=== PATIENT | female | born 1975 | race Caucasian/White ===

== ENCOUNTER 2021-08-15 10:16 | Emergency (ER) | payer BC, OTHER ==
[2021-08-15] MEDS ORDERED: BABY ASPIRIN 81 MG CHEW PO ONE (10:49)
[2021-08-15 10:54] LABS: Absolute Neutrophil Ct (ANC) 3.91 (1.4-6.9); Basophil (Absolute #) 0.07 (0-0.4); Eosinophil % 2.6 % (0.00-5.0); Eosinophil (Absolute #) 0.23 (0-0.5); Hematocrit 36.1 % (35-47); Lymphocyte (Absolute #) 4.25 (1.0-4.6); Lymphocytes % 47.4 % (24.0-44.0); Mean Cell Volume 88.7 fl (78-100); Mean Corpuscular Hemoglobin 29.5 pg (26-32); Mean Corpuscular Hgb Concent. 33.2 g/dl (32-36); Mean Platelet Volume 8.8 fl (7.5-11.0); Monocytes % 5.6 % (0.0-12.0); Neutrophil % 43.6 % (36.0-66.0); Platelet Count 344 K/mm3 (150-450); Red Blood Count 4.07 M/mm3 (4.1-5.4)
[2021-08-15] MEDS ORDERED: BABY ASPIRIN 81 MG CHEW ONE (11:01)
--- NOTE | 2021-08-15 11:12 | XRAY ---
Indication: Chest pain. Comparison: July 20, 2006. Portable chest demonstrates normal heart and lungs with new tiny right lung calcified granulomas. Bony thorax intact. No acute findings.
[2021-08-15 11:13] LABS: ALBUMIN 4.6 g/dL (3.5-5.0); ALKALINE PHOSPHATASE 37 U/L (38-126); ANION GAP 17.3 MEQ/L (5-15); BLOOD UREA NITROGEN 5 mg/dL (7-17); CHLORIDE 100 mmol/L (98-107); Calcium 9.6 mg/dL (8.4-10.2); Carbon Dioxide 24 mmol/L (22-30); Creatinine 1 0.58 mg/dL (0.52-1.04); EST GLOMERULAR FILTRATION RATE > 60.0 ML/MIN; Glucose 103 mg/dL (74-106); NT PRO BNP 40.6 pg/mL (0-450); Potassium 4.2 mmol/L (3.5-5.1); SGOT/AST 21 U/L (14-36); SGPT/ALT 18 U/L (0-35); SODIUM 137 mmol/L (137-145)
--- NOTE | 2021-08-15 14:50 | ERPHSYRPT ---
- History of Present Illness Time Seen by Provider: 08/15/21 10:22 Historian: patient Exam Limitations: no limitations Patient Subjective Stated Complaint: Pt states "I was working and had a sudden grabby pain in my left chest and that got my anxiety up and I could not get the pain to go away." Triage Nursing Assessment: Pt presented alert and oriented X 3, skin pwd. Pt presented smiling and ambulating with an uprigth steady gait, able to speak in clear full sentences. Pt in no apparent respiratory distress. Physician History: 45 years old female with history of anxiety presented to the ER with chief complaint of left-sided chest pain sudden onset while she was sitting at the desk, mild to moderate dull pressure nonradiating, lasting for few minutes and started to improve on presentation in the ER and currently chest pain-free. 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 Patient thinks this is probably secondary to her worsening anxiety symptoms. Timing/Duration: hour(s) (1), constant, sudden, improved Activities at Onset: rest Quality: dullness, fullness Chest Pain Radiation: no radiation Severity of Pain-Max: moderate Severity of Pain-Current: none Modifying Factors: Improves With: nothing Associated Symptoms: denies symptoms Prior Chest Pain/Cardiac Workup: no prior cardiac workup Nitro Today/Relief: no nitro taken today Aspirin Treatment Today: no aspirin today Allergies/Adverse Reactions: Sulfa (Sulfonamide Antibiotics) Allergy (Severe, Verified 08/15/21 10:24) Hives sulfamethoxazole [From Bactrim] Allergy (Verified 03/23/12 17:26) trimethoprim [From Bactrim] Allergy (Verified 03/23/12 17:26) Home Medications: Calcium Carbonate/Vitamin D3 [Calcium + Vitamin D Tablet] 1 each PO DAILY 01/24/12 [History] Metformin HCl 500 mg [Glucophage 500 MG] 500 mg PO BID 01/24/12 [History] Multivitamin [Multi-Day Vitamins] 1 each PO DAILY 01/24/12 [History] Omeprazole 20 MG [Prilosec 20 mg] 20 mg PO DAILY 01/24/12 [History] Spironolact/Hydrochlorothiazid [Spironolactone-Hctz 25-25 Tab] 1 each PO DAILY 01/24/12 [History] Bupropion HCl 150 mg Sr [Wellbutrin SR 150 MG] 150 mg PO DAILY 08/15/21 [History] Icosapent Ethyl [Vascepa] 1 cap PO DAILY 08/15/21 [History] Metoprolol Tartrate 25 mg [Lopressor 25MG Tab] 25 mg PO DAILY 08/15/21 [History] Hx Tetanus, Diphtheria Vaccination/Date Given: Yes (2006) Hx Influenza Vaccination/Date Given: No Hx Pneumococcal Vaccination/Date Given: No Immunizations Up to Date: Yes Travel Risk - International Travel Have you traveled outside of the country in past 3 weeks: No - Coronavirus Screening Are you exhibiting any of the following symptoms?: No Close contact with a COVID-19 positive Pt in past 14-21 Days: No - Vaccine Status Have you recieved a Covid-19 vaccination: 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: [employer] - Vaccination Dates Date of 2cond Vaccination (if applicable): 11/2020 - Review of Systems Constitutional: No Symptoms Eyes: No Symptoms Ears, Nose, & Throat: No Symptoms Respiratory: No Symptoms Cardiac: Chest Pain Abdominal/Gastrointestinal: No Symptoms Genitourinary Symptoms: No Symptoms Musculoskeletal: No Symptoms Skin: No Symptoms Neurological: No Symptoms Psychological: No Symptoms Endocrine: No Symptoms Hematologic/Lymphatic: No Symptoms Immunological/Allergic: No Symptoms - Past Medical History Pertinent Past Medical History: Yes Cardiac History: High Cholesterol, Hypertension Endocrine Medical History: Diabetes Type II Psycho-Social History: Anxiety, Depression Female Reproductive Disorders: Other - Past Surgical History Past Surgical History: Yes Other Surgical History: OCULAR IMPLANT - Social History Smoking Status: Never smoker Exposure to second hand smoke: Yes Alcohol Use: Socially Drug Use: none Patient Lives Alone: No Significant Family History: no pertinent family hx - Female History Hx Last Menstrual Period: 08/05/2020 Hx Now: No - Nursing Vital Signs Nursing Vital Signs: Initial Vital Signs Temperature 97.6 F 08/15/21 10:16 Pulse Rate 83 08/15/21 10:16 Respiratory Rate 20 08/15/21 10:16 Blood Pressure 148/100 08/15/21 10:16 O2 Sat by Pulse Oximetry 100 08/15/21 10:16 Pain Scale Pain Intensity 0 - Physical Exam General Appearance: no apparent distress, alert Eye Exam: PERRL/EOMI, eyes nml inspection, other Ears, Nose, Throat Exam: normal ENT inspection, pharynx normal, moist mucous membranes Neck Exam: normal inspection, non-tender, supple, full range of motion Respiratory Exam: normal breath sounds, lungs clear Cardiovascular Exam: regular rate/rhythm, normal heart sounds Gastrointestinal/Abdomen Exam: soft, normal bowel sounds, No tenderness Back Exam: normal inspection, normal range of motion Extremity Exam: normal inspection, normal range of motion Neurologic Exam: alert, oriented x 3, cooperative Skin Exam: normal color SpO2 Interpretation: normal SpO2: 99 O2 Delivery: Room Air - Course EKG Interpreted by Me: RATE (79), Sinus Rhythm, NORMAL AXIS, NORMAL INTERVALS, Non-specific ST Changes, Other (T wave inversion in inferolateral leads) Ordered Tests: Active Orders 24 hr Category Date Time Status Powder And Primer Canning Leader STAT Care 08/15/21 10:50 Completed EKG-ER Only STAT Care 08/15/21 10:49 Completed IV Insertion STAT Care 08/15/21 10:49 Completed CHEST 1 VIEW (PORTABLE) Stat Exams 08/15/21 10:50 Completed CBC W DIFF Stat Lab 08/15/21 10:00 Completed CMP Stat Lab 08/15/21 10:00 Completed D-DIMER QUANTITATIVE Stat Lab 08/15/21 10:00 Completed NT PRO BNP Stat Lab 08/15/21 10:00 Completed TROPONIN Q3H Lab 08/15/21 10:00 Completed TROPONIN Q3H Lab 08/15/21 14:05 Completed Medication Summary Discontinued Medications Generic Name Dose Route Start Last Admin Trade Name Freq PRN Reason Stop Dose Admin Aspirin 324 mg 08/15/21 10:49 08/15/21 11:02 Aspirin 81 Mg Tab.Chew PO 08/15/21 10:50 324 mg STAT ONE Administration Aspirin Confirm 08/15/21 11:01 Aspirin 81 Mg Tab.Chew Administered 08/15/21 11:02 Dose 324 mg .ROUTE .STK-MED ONE Lab/Rad Data: Laboratory Result Diagrams 08/15/21 10:00 08/15/21 10:00 Laboratory Results 08/15/21 08/15/21 08/15/21 Range/Units 14:05 10:00 10:00 WBC (4.0-10.5) K/mm3 RBC (4.1-5.4) M/mm3 Hgb (12.0-16.0) gm/dl Hct (35-47) % MCV (78-100) fl MCH (26-32) pg MCHC (32-36) g/dl RDW (11.5-14.0) % Plt Count (150-450) K/mm3 MPV (7.5-11.0) fl Gran % (36.0-66.0) % Eos # (Auto) (0-0.5) Absolute Lymphs (auto) (1.0-4.6) Absolute Monos (auto) (0.0-1.3) Lymphocytes % (24.0-44.0) % Monocytes % (0.0-12.0) % Eosinophils % (0.00-5.0) % Basophils % (0.0-0.4) % Absolute Granulocytes (1.4-6.9) Basophils # (0-0.4) D-Dimer < 215 L (215-500) ng/mL Sodium (137-145) mmol/L Potassium (3.5-5.1) mmol/L Chloride (98-107) mmol/L Carbon Dioxide (22-30) mmol/L Anion Gap (5-15) MEQ/L BUN (7-17) mg/dL Creatinine (0.52-1.04) mg/dL Estimated GFR ML/MIN Glucose (74-106) mg/dL Calcium (8.4-10.2) mg/dL Total Bilirubin (0.2-1.3) mg/dL AST (14-36) U/L ALT (0-35) U/L Alkaline Phosphatase (38-126) U/L Troponin I < 0.012 < 0.012 (0.000-0.034) ng/mL NT-Pro-B Natriuret Pep (0-450) pg/mL Serum Total Protein (6.3-8.2) g/dL Albumin (3.5-5.0) g/dL 08/15/21 08/15/21 Range/Units 10:00 10:00 WBC 9.0 (4.0-10.5) K/mm3 RBC 4.07 L (4.1-5.4) M/mm3 Hgb 12.0 (12.0-16.0) gm/dl Hct 36.1 (35-47) % MCV 88.7 (78-100) fl MCH 29.5 (26-32) pg MCHC 33.2 (32-36) g/dl RDW 13.0 (11.5-14.0) % Plt Count 344 (150-450) K/mm3 MPV 8.8 (7.5-11.0) fl Gran % 43.6 (36.0-66.0) % Eos # (Auto) 0.23 (0-0.5) Absolute Lymphs (auto) 4.25 (1.0-4.6) Absolute Monos (auto) 0.50 (0.0-1.3) Lymphocytes % 47.4 H (24.0-44.0) % Monocytes % 5.6 (0.0-12.0) % Eosinophils % 2.6 (0.00-5.0) % Basophils % 0.8 (0.0-0.4) % Absolute Granulocytes 3.91 (1.4-6.9) Basophils # 0.07 (0-0.4) D-Dimer (215-500) ng/mL Sodium 137 (137-145) mmol/L Potassium 4.2 (3.5-5.1) mmol/L Chloride 100 (98-107) mmol/L Carbon Dioxide 24 (22-30) mmol/L Anion Gap 17.3 H (5-15) MEQ/L BUN 5 L (7-17) mg/dL Creatinine 0.58 (0.52-1.04) mg/dL Estimated GFR > 60.0 ML/MIN Glucose 103 (74-106) mg/dL Calcium 9.6 (8.4-10.2) mg/dL Total Bilirubin 0.50 (0.2-1.3) mg/dL AST 21 (14-36) U/L ALT 18 (0-35) U/L Alkaline Phosphatase 37 L (38-126) U/L Troponin I (0.000-0.034) ng/mL NT-Pro-B Natriuret Pep 40.6 (0-450) pg/mL Serum Total Protein 7.0 (6.3-8.2) g/dL Albumin 4.6 (3.5-5.0) g/dL - Progress Progress: improved Air Movement: good Progress Note: 08/15/21 14:47 45 years old is evaluated for chest pain. EKG showed normal sinus rhythm without any ST elevations. Negative troponins x2. Negative D-dimers. Chest x- ray negative for any acute cardiopulmonary findings. Low heart score. Do not think she needs to be admitted and her symptoms could be secondary to anxiety. Recommended outpatient follow-up with primary care and cardiology for reevaluation. Discussed signs symptoms of worsening needing return to ER which he seems understanding. Blood Culture(s) Obtained: No Antibiotics given: No Counseled pt/family regarding: lab results, diagnosis, need for follow-up, rad results - Departure Departure Disposition: Home Clinical Impression: Atypical chest pain, Anxiety Condition: Stable Critical Care Time: No Referrals: WILFRED TIJERINA NP [Primary Care Provider] - Follow up/PCP as directed (1-2 days for reevaluation) [place] KEMP [CONSULTING PHYSICIAN] - Follow up/PCP as directed (Call for appointment) Instructions: Angina (DC) Additional Instructions: Take Tylenol as needed for pain. Continue with your current anxiety medications. Follow-up with primary care and cardiology for reevaluation. Return to ER for worsening pain and if having palpitations/shortness of breath etc.
[2021-08-15 15:08] VITALS: BP 112/68; PULSE 100
[2021-08-15 21:45] VITALS: O2SAT 99
== END 2021-08-15 15:41 | disposition home or self-care (01) ==
LOC: ED 10:16
DX: R07.89 Other chest pain (principal); F41.9 Anxiety disorder, unspecified; E78.5 Hyperlipidemia, unspecified; I10 Essential (primary) hypertension; E11.9 Type 2 diabetes mellitus without complications; Z79.84 Long term (current) use of oral hypoglycemic drugs
CPT/HCPCS: 36000; 36415; 71045; 80053; 83880; 84484; 85025; 85379; 93005; 93041; 99284; A9270-GY

== ENCOUNTER 2023-12-16 15:08 | Emergency (ER) | payer OTHER ==
[2023-12-16] MEDS: BABY ASPIRIN 81 MG CHEW PO ONE (15:24)
[2023-12-16 15:33] VITALS: TEMP 96.9
--- NOTE | 2023-12-16 15:42 | ERPHSYRPT ---
- History of Present Illness Time Seen by Provider: 12/16/23 15:25 Historian: patient Exam Limitations: no limitations Patient Subjective Stated Complaint: Chest pain Triage Nursing Assessment: Patient ambulated back to ED and transferred self to bed. Patient A+O X3. Patient's skin pink, warm and dry. Patient complains of intermittent chest pain on and off since this am. Patient currently denies chest pain. Physician History: 48-year-old female presents emergency department for evaluation of left-sided chest pain. Pain started today. No specific triggering factors. Pain described as a stabbing burning sensation. Patient has had chest pain in the past which was caused by her anxiety however this pain feels somewhat different. No nausea no vomiting no diaphoresis. No trauma no fever. No shortness of breath. Symptoms are mild to moderate in intensity. No specific worsening improving factors. Patient voices no other complaints or concerns at this time. Portions of this note were created with voice recognition technology. There may be grammatical, spelling, punctuation or sound alike errors Timing/Duration: today Activities at Onset: none Quality: aching Location: substernal Chest Pain Radiation: no radiation Severity of Pain-Max: moderate Severity of Pain-Current: mild Modifying Factors: Improves With: nothing Associated Symptoms: denies symptoms Prior Chest Pain/Cardiac Workup: no prior chest pain Nitro Today/Relief: no nitro taken today Aspirin Treatment Today: no aspirin today Allergies/Adverse Reactions: Sulfa (Sulfonamide Antibiotics) Allergy (Severe, Verified 12/16/23 15:18) Hives sulfamethoxazole [From Bactrim] Allergy (Verified 12/16/23 15:18) trimethoprim [From Bactrim] Allergy (Verified 12/16/23 15:18) Home Medications: Calcium Carbonate/Vitamin D3 [Calcium + Vitamin D Tablet] 1 each PO DAILY 01/24/12 [History] Metformin HCl 500 mg [Glucophage 500 MG] 500 mg PO BID 01/24/12 [History] Multivitamin [Multi-Day Vitamins] 1 each PO DAILY 01/24/12 [History] Omeprazole 20 MG [Prilosec 20 mg] 20 mg PO DAILY 01/24/12 [History] Spironolact/Hydrochlorothiazid [Spironolactone-Hctz 25-25 Tab] 1 each PO DAILY 01/24/12 [History] Bupropion HCl 150 mg Sr [Wellbutrin SR 150 MG] 150 mg PO DAILY 08/15/21 [History] Metoprolol Tartrate 25 mg [Lopressor 25MG Tab] 25 mg PO DAILY 08/15/21 [History] Hx Tetanus, Diphtheria Vaccination/Date Given: Yes (2006) Hx Influenza Vaccination/Date Given: No Hx Pneumococcal Vaccination/Date Given: No Immunizations Up to Date: Yes Travel Risk - International Travel Have you traveled outside of the country in past 3 weeks: No - Emerging Infectious Disease Are you exhibiting symptoms associated with any current EIDs: No - Review of Systems Constitutional: No Symptoms, No Fever, No Chills Eyes: No Symptoms Ears, Nose, & Throat: No Symptoms Respiratory: No Symptoms, No Cough, No Dyspnea Cardiac: No Symptoms, No Chest Pain, No Edema, No Syncope Abdominal/Gastrointestinal: No Symptoms, No Abdominal Pain, No Nausea, No Vomiting, No Diarrhea Genitourinary Symptoms: No Symptoms, No Dysuria Musculoskeletal: No Symptoms, No Back Pain, No Neck Pain Skin: No Symptoms, No Rash Neurological: No Symptoms, No Dizziness, No Focal Weakness, No Sensory Changes Psychological: No Symptoms Endocrine: No Symptoms Hematologic/Lymphatic: No Symptoms Immunological/Allergic: No Symptoms All Other Systems: Reviewed and Negative - Past Medical History Pertinent Past Medical History: Yes Neurological History: No Pertinent History Cardiac History: High Cholesterol, Hypertension Respiratory History: No Pertinent History, Other Endocrine Medical History: Diabetes Type II Musculoskeletal History: Other Psycho-Social History: Anxiety, Depression Female Reproductive Disorders: Other Other Medical History: asymptomatic mild pulmonary hypertension, B implatable lenses and Lasik surgery to B eyes, anxiety - Past Surgical History Past Surgical History: Yes Other Surgical History: OCULAR IMPLANT Significant Family History: no pertinent family hx - Female History Hx Last Menstrual Period: 3 weeks ago Hx Now: No - Social History Smoking Status: Never smoker Exposure to second hand smoke: Yes Alcohol Use: Socially Drug Use: none Patient Lives Alone: No - Nursing Vital Signs Nursing Vital Signs: Initial Vital Signs Temperature 96.9 F 12/16/23 15:19 Pulse Rate 88 12/16/23 15:19 Respiratory Rate 18 12/16/23 15:19 Blood Pressure 139/90 12/16/23 15:19 O2 Sat by Pulse Oximetry 100 12/16/23 15:19 Pain Scale Pain Intensity 0 - Physical Exam General Appearance: no apparent distress, alert Eye Exam: PERRL/EOMI, eyes nml inspection Ears, Nose, Throat Exam: normal ENT inspection, moist mucous membranes Neck Exam: normal inspection, non-tender, supple, full range of motion Respiratory Exam: normal breath sounds, lungs clear, airway intact, No respiratory distress Cardiovascular Exam: regular rate/rhythm, normal heart sounds Gastrointestinal/Abdomen Exam: soft, No tenderness, No mass Back Exam: normal inspection, No CVA tenderness, No vertebral tenderness Extremity Exam: normal inspection, normal range of motion Neurologic Exam: alert, oriented x 3, cooperative, normal mood/affect, sensation nml, No motor deficits Skin Exam: normal color, warm, dry Lymphatic Exam: No adenopathy SpO2 Interpretation: normal SpO2: 97 O2 Delivery: Room Air - Course Nursing assessment & vital signs reviewed: Yes EKG Interpreted by Me: RATE (85), Sinus Rhythm, NORMAL AXIS, NORMAL INTERVALS - Radiology Exams Chest X-ray Interpretation: Teleradiologist Report (Lung granuloma. No acute findings) Ordered Tests: Active Orders 24 hr Category Date Time Status AMA [Release AMA] OM.NOW Care 12/16/23 18:40 Completed Portfolio Strategist STAT Care 12/16/23 15:19 Completed EKG-ER Only STAT Care 12/16/23 15:19 Completed Pulse Oximetry (ED) STAT Care 12/16/23 15:19 Completed CHEST 1 VIEW (PORTABLE) Stat Exams 12/16/23 15:19 Completed CBC W DIFF Stat Lab 12/16/23 16:20 Completed CMP Stat Lab 12/16/23 16:20 Completed D-DIMER QUANTITATIVE Stat Lab 12/16/23 16:20 Completed HCG QUALITATIVE, SERUM Stat Lab 12/16/23 16:20 Completed NT PRO BNPII Stat Lab 12/16/23 16:20 Completed TROPONIN Q4H Lab 12/16/23 16:20 Completed TROPONIN Q4H Lab 12/16/23 17:52 Completed TROPONIN Q4H Lab 12/16/23 23:30 Ordered Medication Summary Discontinued Medications Generic Name Dose Route Start Last Admin Trade Name Freq PRN Reason Stop Dose Admin Aspirin 324 mg 12/16/23 15:19 12/16/23 15:24 Aspirin 81 Mg Tab.Chew PO 12/16/23 15:20 324 mg STAT ONE Administration Lab/Rad Data: Laboratory Result Diagrams 12/16/23 16:20 12/16/23 16:20 Laboratory Results 12/16/23 12/16/23 12/16/23 Range/Units 17:52 16:20 16:20 WBC (4.0-10.5) x10^3/uL RBC (4.1-5.4) x10^6/uL Hgb (12.0-16.0) g/dL Hct (35-47) % MCV (78-100) fL MCH (26-32) pg MCHC (32-36) g/dL RDW (11.5-14.0) % Plt Count (150-450) x10^3/uL MPV (7.5-11.0) fL Gran % (36.0-66.0) % Immature Gran % (Auto) (0.00-0.4) % Nucleat RBC Rel Count (0.00-0.1) % Eos # (Auto) (0-0.5) x10^3/uL Immature Gran # (Auto) (0.00-0.03) x10^3u/L Absolute Lymphs (auto) (1.0-4.6) x10^3/uL Absolute Monos (auto) (0.0-1.3) x10^3/uL Absolute Nucleated RBC (0.00-0.01) x10^3u/L Lymphocytes % (24.0-44.0) % Monocytes % (0.0-12.0) % Eosinophils % (0.00-5.0) % Basophils % (0.0-0.4) % Absolute Granulocytes (1.4-6.9) x10^3/uL Basophils # (0-0.4) x10^3/uL D-Dimer (0.0-0.50) mg/L Sodium (135-145) mmol/L Potassium (3.5-5.1) mmol/L Chloride (98-107) mmol/L Carbon Dioxide (22-30) mmol/L Anion Gap (5-15) MEQ/L BUN (7-17) mg/dL Creatinine (0.52-1.04) mg/dL Estimated GFR ML/MIN Glucose (74-106) mg/dL Calcium (8.4-10.2) mg/dL Total Bilirubin (0.2-1.3) mg/dL AST (14-36) U/L ALT (0-35) U/L Alkaline Phosphatase (38-126) U/L Troponin I < 0.012 < 0.012 (0.000-0.033) ng/mL NT-Pro-B Natriuret Pep (<300) pg/mL Serum Total Protein (6.3-8.2) g/dL Albumin (3.5-5.0) g/dL Serum HCG, Qual NEGATIVE (NEGATIVE) 12/16/23 12/16/23 12/16/23 Range/Units 16:20 16:20 16:20 WBC 9.5 (4.0-10.5) x10^3/uL RBC 4.12 (4.1-5.4) x10^6/uL Hgb 12.8 (12.0-16.0) g/dL Hct 37.0 (35-47) % MCV 89.8 (78-100) fL MCH 31.1 (26-32) pg MCHC 34.6 (32-36) g/dL RDW 12.7 (11.5-14.0) % Plt Count 322 (150-450) x10^3/uL MPV 9.3 (7.5-11.0) fL Gran % 47.7 (36.0-66.0) % Immature Gran % (Auto) 0.6 H (0.00-0.4) % Nucleat RBC Rel Count 0.0 (0.00-0.1) % Eos # (Auto) 0.25 (0-0.5) x10^3/uL Immature Gran # (Auto) 0.06 H (0.00-0.03) x10^3u/L Absolute Lymphs (auto) 4.09 (1.0-4.6) x10^3/uL Absolute Monos (auto) 0.48 (0.0-1.3) x10^3/uL Absolute Nucleated RBC 0.00 (0.00-0.01) x10^3u/L Lymphocytes % 43.2 (24.0-44.0) % Monocytes % 5.1 (0.0-12.0) % Eosinophils % 2.6 (0.00-5.0) % Basophils % 0.8 (0.0-0.4) % Absolute Granulocytes 4.50 (1.4-6.9) x10^3/uL Basophils # 0.08 (0-0.4) x10^3/uL D-Dimer 0.20 (0.0-0.50) mg/L Sodium 140 (135-145) mmol/L Potassium 4.2 (3.5-5.1) mmol/L Chloride 105 (98-107) mmol/L Carbon Dioxide 22 (22-30) mmol/L Anion Gap 17.8 H (5-15) MEQ/L BUN 9 (7-17) mg/dL Creatinine 0.72 (0.52-1.04) mg/dL Estimated GFR 103.1 ML/MIN Glucose 104 (74-106) mg/dL Calcium 9.5 (8.4-10.2) mg/dL Total Bilirubin 0.50 (0.2-1.3) mg/dL AST 21 (14-36) U/L ALT 19 (0-35) U/L Alkaline Phosphatase 39 (38-126) U/L Troponin I (0.000-0.033) ng/mL NT-Pro-B Natriuret Pep < 20.0 (<300) pg/mL Serum Total Protein 8.1 (6.3-8.2) g/dL Albumin 5.1 H (3.5-5.0) g/dL Serum HCG, Qual (NEGATIVE) - Progress Progress: improved Air Movement: good Progress Note: Heart score is 4 based on suspicion, age, risk factors including hypertension hypercholesterolemia diabetes and BMI of 40.5. Patient declined admission. Patient is of sound mind. Patient is appropriate to make informed and independent medical decisions. Patient understands that leaving AGAINST MEDICAL ADVICE can result in delayed diagnosis, increased risk of morbidity, mortality, short and long-term disability including . In spite of these risks, patient has decided to leave AGAINST MEDICAL ADVICE. Patient understands that she may return to our ED at any point if she reconsiders. Patient agrees to follow-up with her primary care doctor within 48 hours for reevaluation. Patient voices no other complaints or concerns at this time. We will release patient AGAINST MEDICAL ADVICE per their request. Patient reports she has a follow-up appointment scheduled for the to see her primary care doctor. Portions of this note were created with voice recognition technology. There may be grammatical, spelling, punctuation or sound alike errors Complexity problem addressed is moderate acute complicated. No critical care time. Complex of data reviewed and analyzed is moderate. Test ordered test reviewed results analyzed and correlated clinically with history and physical examination. Risk complication and or risk of morbidity/mortality patient management is low. Vital stable. Time spent discharge patient AMA is approximately 15 minutes. No social determinants of health present impede follow-up 12/16/23 18:44 Blood Culture(s) Obtained: No Antibiotics given: No Counseled pt/family regarding: lab results, diagnosis, need for follow-up, rad results - Departure Departure Disposition: Home Clinical Impression: Chest pain, ACS (acute coronary syndrome) Condition: Stable Critical Care Time: No Referrals: WILFRED TIJERINA, [employer] [Primary Care Provider] - Follow up/PCP as directed Additional Instructions: Discharge/Care Plan SHERIN BOLAND was seen on 12/16/23 in the Emergency Room. The patient was counseled regarding Diagnosis,Lab results, Imaging studies, need for follow up and when to return to the Emergency Room. Prescriptions given: Discharge Note I have spoken with the patient and/or caregivers. I have explained the patient's condition, diagnosis and treatment plan based on the information available to me at this time. I have answered the patient's and/or caregiver's questions and addressed any concerns. The patient and/or caregivers have as good understanding of the patient's diagnosis, condition and treatment plan as can be expected at this point. The vital signs have been stable. The patient's condition is stable and appropriate for discharge from the emergency department. The patient will pursue further outpatient evaluation with the primary care physician or other designated or consulting physician as outlined in the discharge instructions. The patient and/or caregivers are agreeable to this plan of care and follow-up instructions have been explained in detail. The patient and/or caregivers have received these instruction. The patient/and or caregivers are aware that any significant change in condition or worsening of symptoms sh ould prompt an immediate return to this or the closest emergency department or call 911.
[2023-12-16 16:25] LABS: BASOPHIL % 0.8 % (0.0-0.4); Basophil (Absolute #) 0.08 x10^3/uL (0-0.4); Eosinophil % 2.6 % (0.00-5.0); Eosinophil (Absolute #) 0.25 x10^3/uL (0-0.5); Hemoglobin 12.8 g/dL (12.0-16.0); IMMATURE GRAN # 0.06 x10^3u/L (0.00-0.03); IMMATURE GRAN % 0.6 % (0.00-0.4); Lymphocyte (Absolute #) 4.09 x10^3/uL (1.0-4.6); Lymphocytes % 43.2 % (24.0-44.0); Mean Cell Volume 89.8 fL (78-100); Mean Corpuscular Hemoglobin 31.1 pg (26-32); Mean Corpuscular Hgb Concent. 34.6 g/dL (32-36); Mean Platelet Volume 9.3 fL (7.5-11.0); Monocyte (Absolute #) 0.48 x10^3/uL (0.0-1.3); Monocytes % 5.1 % (0.0-12.0); Neutrophil % 47.7 % (36.0-66.0); Platelet Count 322 x10^3/uL (150-450); Red Blood Count 4.12 x10^6/uL (4.1-5.4); Red Cell Distribution Width 12.7 % (11.5-14.0); White Blood Count 9.5 x10^3/uL (4.0-10.5)
[2023-12-16 16:40] LABS: HCG SERUM TEST NEGATIVE (NEGATIVE)
[2023-12-16 16:50] LABS: ALBUMIN 5.1 g/dL (3.5-5.0); ALKALINE PHOSPHATASE 39 U/L (38-126); ANION GAP 17.8 MEQ/L (5-15); BLOOD UREA NITROGEN 9 mg/dL (7-17); CHLORIDE 105 mmol/L (98-107); Calcium 9.5 mg/dL (8.4-10.2); Carbon Dioxide 22 mmol/L (22-30); Creatinine 1 0.72 mg/dL (0.52-1.04); EST GLOMERULAR FILTRATION RATE 103.1 ML/MIN; Glucose 104 mg/dL (74-106); NT PRO BNPII < 20.0 pg/mL (<300); Potassium 4.2 mmol/L (3.5-5.1); SGOT/AST 21 U/L (14-36); SGPT/ALT 19 U/L (0-35); SODIUM 140 mmol/L (135-145); Total Protein 8.1 g/dL (6.3-8.2)
--- NOTE | 2023-12-16 17:09 | XRAY ---
Indication: Chest pain. Comparison: August 15, 2021 Portable chest again demonstrates normal heart and lungs with tiny right lung calcified granulomas. Bony thorax intact again with minimal degenerative changes. No new/acute findings.
[2023-12-16 18:40] VITALS: BP 129/91; PULSE 72; RESP 16
[2023-12-16 18:48] VITALS: O2SAT 97
== END 2023-12-16 18:43 | disposition left against medical advice (07) ==
LOC: ED 15:08
DX: I24.9 Acute ischemic heart disease, unspecified (principal); R07.9 Chest pain, unspecified; I10 Essential (primary) hypertension; E78.5 Hyperlipidemia, unspecified; E11.9 Type 2 diabetes mellitus without complications; Z79.84 Long term (current) use of oral hypoglycemic drugs; Z79.899 Other long term (current) drug therapy
CPT/HCPCS: 36415; 71045; 80053; 83880; 84484; 84703; 85025; 85379; 93005; 93041; 94760; 99284; A9270-GY